=== PATIENT | male | born 1970 | race Caucasian/White ===

== ENCOUNTER → 2020-09-21 | Outpatient (CLI) | payer BC | END | disposition home or self-care (01) | LOC: ROC 07:50 | PROVIDERS: ATTEND Radiology Radiation Oncology | DX: C71.6 Malignant neoplasm of cerebellum (principal) | CPT/HCPCS: 99214; G0463 ==

== ENCOUNTER → 2020-11-10 | Outpatient (CLI) | payer BC | END | disposition home or self-care (01) | LOC: ROC 10:00 | PROVIDERS: ATTEND Radiology Radiation Oncology | DX: C71.6 Malignant neoplasm of cerebellum (principal); H53.2 Diplopia; R26.89 Other abnormalities of gait and mobility | CPT/HCPCS: 99212; G0463 ==